=== PATIENT | female | born 1990 | race Caucasian/White ===

== ENCOUNTER 2016-11-11 11:46 | Emergency (ER) | payer OTHER ==
[~2016-11-11] VITALS: Ht 157.5 cm; Wt 65.0 kg
[~2016-11-11 11:46] MED LIST: BCPILLS PO; LEVO-371 PO
[2016-11-11 11:51] VITALS: Ht 157.5 cm; Wt 65.0 kg
[2016-11-11] MEDS ORDERED: ONDANSETRON 4MG OD TAB PO STA (12:08)
[2016-11-11] MEDS ORDERED: MoRPHine SULFATE 10 MG/ML CARP/VIAL IM STA (12:08)
[2016-11-11] MEDS ORDERED: BUPIVACAINE 0.5 % 5 MG/1 ML MPF 30ML VIAL INFIL ONE (12:15)
[2016-11-11] MEDS ORDERED: XYLOCAINE 1%/SOD BICARB 20 ML VIAL INFIL ONE (12:15)
[2016-11-11] MEDS ORDERED: DEXT1CAP PO (12:18)
[2016-11-11] MEDS ORDERED: ULT50 PO (12:18)
[2016-11-11] MEDS ORDERED: CLC/300 PO (12:20)
[2016-11-11] MEDS ORDERED: LORAZEPAM 1 MG TAB PO STA (12:23)
--- NOTE | 2016-11-11 12:27 | EMERGENCY ROOM VISIT NOTE ---
ED Visit Note First contact with patient: 11:59 CHIEF COMPLAINT: Infection of the left thigh HISTORY OF PRESENT ILLNESS: This 26-year-old female patient presents to the emergency department with severe pain in the medial aspect of her left thigh for the last several days. The patient was seen at [facility] 2 days ago. She was diagnosed with an abscess. The abscess was opened and packed. The patient notes severe pain with the procedure and ever since. The packing stayed in until this morning when it fell out. She says that it is still draining purulent fluid. She denies any fever or chills. She does note vomiting every day since she had the procedure done. They put her on clindamycin and Ultram. The Ultram has not been helping with the pain. REVIEW OF SYSTEMS: A review of systems was performed with positives and pertinent negatives listed in the history of present illness. All other systems were reviewed and are negative. ALLERGIES: Hydrocodone MEDICATIONS: Clindamycin, Ultram PMH: Otherwise healthy SOCIAL HISTORY: She does not smoke, occasional alcohol use. PHYSICAL EXAM: Vital Signs: Reviewed Nurse's notes, vital signs stable. GENERAL : 26-year-old female, obviously anxious in appearance. Tearful. SKIN: Approximately 3 cm area of slight erythema and induration noted to the medial thigh. There is a centralized incision. No packing. No noted purulent drainage. EMERGENCY DEPARTMENT COURSE: I examined the patient. She was given morphine 6 g IM and Zofran 4 mg sublingual. She was also given Ativan 1 mg sublingual. She was put on a monitor. Verbal consent was obtained to perform the procedure. After saline and Betadine cleansing and 5 mL of 1% buffered lidocaine and Marcaine anesthesia, the abscess was further incised with a number 11 scalpel blade. The abscess cavity was further probed with a needle flatbed truck driver and the deep pocket expressed. The abscess cavity was then copiously irrigated with sterile saline under pressure. The area was then packed with plain packing. The area was cleaned with sterile saline and dressed with bacitracin and a bulky bandage. The patient tolerated the procedure well. The patient was discharged home in stable condition. DIAGNOSIS: Abscess of the Left thigh DISCHARGE INSTRUCTIONS & TREATMENT: Change the dressing if it becomes soiled or blood-stained and remove the drain in about 36 hours. Cephalexin, 500 mg 4 times a day for 5 days. Please return in 48 hours for packing removal. Please return sooner for any worsening symptoms. Apply warm compresses at least 3 times daily for the next 72 hours to encourage drainage. You may also perform sitz baths and a very clean bathtub. Ibuprofen 600 mg every 6 hours Percocet 1-2 tabs every 4 hours for severe pain. Do not drink alcohol or drive while taking this medication. This may be taken with ibuprofen, but avoid Tylenol. Zofran every 6 hours as needed for nausea. Please See a general surgeon if the abscess does not clear up. A number has been provided. This chart was completed in part utilizing [employer] Speech Voice Recognition software. Attempts were made to minimize the grammatical errors, random word insertions, pronoun errors and incomplete sentences. Any formal questions or concerns about the content, text or information contained within the body of this dictation should be directly addressed to the provider for clarification.
[2016-11-11] MEDS ORDERED: OXYC-57 PO (13:49)
[2016-11-11] MEDS ORDERED: CEPH500C PO (13:49)
[2016-11-11] MEDS ORDERED: ONDA4TAB10 SL (13:49)
[2016-11-11 14:17] VITALS: BP 128/67; PULSE 60; TEMP 36.8; O2SAT 98
== END 2016-11-11 14:19 | disposition home or self-care (01) ==
LOC: C.EDB 11:47 → C.EDD 14:19
DX: L08.9 Local infection of the skin and subcutaneous tissue, unspecified (principal); L02.416 Cutaneous abscess of left lower limb

== ENCOUNTER 2016-11-13 12:58 | Emergency (ER) | payer OTHER ==
[~2016-11-13] VITALS: Ht 157.5 cm; Wt 66.0 kg
[~2016-11-13 12:58] MED LIST changes: +CEPH500C PO; +CLC/300 PO; +DEXT1CAP PO; +ONDA4TAB10 SL; +OXYC-57 PO; +ULT50 PO
[2016-11-13 13:13] VITALS: BP 128/73; PULSE 83; TEMP 37.2; O2SAT 98; Ht 157.5 cm; Wt 66.0 kg
--- NOTE | 2016-11-13 13:42 | EMERGENCY ROOM VISIT NOTE ---
ED Visit Note First contact with patient: 13:25 CHIEF COMPLAINT: Packing removal abscess left thigh Patient is a 26-year-old white female who returns to the emergency department as advised for packing removal from the left inner thigh. She was seen and evaluated here 48 hours ago for the same complaint. She previously had been seen at [facility] 2 days prior to that, where it had been initially I&D'd. She had a repeat I&D performed on Sunday. She is on clindamycin and Keflex. Pain has been improved with the Percocet. She still notes purulent drainage from the area. She rates her pain a 8/10. REVIEW OF SYSTEMS: Review of systems as per HPI. All other systems reviewed were negative. At least 6 systems reviewed. PMH: Electronic medical records are reviewed and summarized as above/below. See Problem List. SOCIAL HISTORY: Patient lives at home with her PHYSICAL EXAM: Vital Signs: Reviewed Nurse's notes. MENTAL STATUS: Patient is an extremely distraught, tearful 26-year-old white female who is awake and alert and crying due to pain. SKIN: Examination of the medial left thigh showed the I&D site, with packing in place. Packing was removed without difficulty. The area is not erythematous, no significant induration present. There is no warmth. No cellulitic changes are noted. There is no lymphangitic streaking. The area is still moderately tender to palpation. EMERGENCY DEPARTMENT COURSE: The patient was seen and examined as above. Her old records are reviewed, specifically her ED visit from 2 days ago. She does not have any pending cultures. Clinically, and based on review of her old records, the area appears to be improving. It does not require further debridement or repacking. She should continue the Keflex and clindamycin as previously prescribed. She had been given contact information for general surgery for follow-up for definitive management once in the infection has healed. She was advised to recheck with her primary care provider this week. Medication reconciliation: I attest that I have personally reviewed the patient' s current medication list. Blood pressure screening : Patient was found to have normal blood pressure on screening and does not require follow-up. Problem List Medical Problems: (1) No known health problems Status: Chronic (2) Sacroiliitis Status: Resolved Current/Historical Medications Scheduled Control Pills ( Control Pills), 1 TAB PO DAILY Cephalexin Monohydrate (Keflex), 500 MG PO QID Clindamycin HCl (Clindamycin HCl), 300 MG PO TID Dextroamphetamine Sulfate (Dextroamphetamine Sulfate), 15 MG PO DAILY Levocetirizine Dihydrochloride (Xyzal), 1 TAB PO DAILY Ondasetron Odt (Zofran Odt), 4 MG SL Q6H Tramadol HCl (Tramadol HCl), 50 MG PO UD Scheduled PRN Oxycodone/Acetaminophen 5MG/325MG (Percocet 5MG/325MG), 1-2 TABS PO Q4H PRN for Pain Allergies Coded Allergies: Hydrocodone (Verified Adverse Reaction, Unknown, GI SYMPTOMS, 11/11/16) Vital Signs Date Time Temp Pulse Resp B/P (MAP) Pulse Ox O2 Delivery O2 Flow Rate FiO2 11/13/16 13:13 37.2 83 18 128/73 98 Room Air Departure Information Impression Primary Impression: Abscess packing removal Referrals Estuardo Darnell, D.O. (PCP) Patient Instructions My [facility] Additional Instructions Finish all antibiotics. Continue local wound care measures as discussed. Dressing changes daily. Warm compresses. Follow-up with your primary care physician this week for recheck.
== END 2016-11-13 14:02 | disposition home or self-care (01) ==
LOC: C.EDB 12:59 → C.EDD 14:02
DX: Z48.00 Encounter for change or removal of nonsurgical wound dressing (principal); L02.416 Cutaneous abscess of left lower limb

== ENCOUNTER 2020-07-27 06:05 | Inpatient (IN) ==
[2020-07-27] MEDS ORDERED: DINOPROSTONE 10 MG INSERT PV ONE (06:45)
[2020-07-27] MEDS ORDERED: OXYTOCIN 30 UNITS/500 ML BAG IV PRN (06:45)
[2020-07-27 07:10] LABS: Hematocrit (blood only) 33.2 % (37-47); Hemoglobin 10.8 g/dL (12.0-16.0); Mean Corpuscular Hemoglobin 25.3 pg (25-34); Mean Corpuscular Hgb Conc 32.5 g/dL (32-36); Mean Corpuscular Volume 77.8 fL (80-100); Mean Platelet Volume 10.2 fL (7.4-10.4); Nucleated RBC # (auto) 0.02 K/uL (0-0); Nucleated RBC % (auto) 0.2 %; Platelet Count 319 K/uL (130-400); RDW Coefficient of Variation 15.8 % (11.5-14.5); RDW Standard Deviation 44.9 fL (36.4-46.3); Red Blood Count 4.27 M/uL (4.2-5.4); White Blood Count 10.51 K/uL (4.8-10.8)
[2020-07-27 07:42] LABS: Albumin Level 2.6 gm/dl (3.4-5.0); BUN Creatinine Ratio 15.8 (10-20); Creatinine Clr Calc Pharmacy 137.9 ml/min; Est GFR (African American) 139.5 ml/min; Est GFR (Non-African American) 120.4 ml/min; Potassium 3.7 mmol/L (3.5-5.1)
[2020-07-27 07:45] LABS: Albumin Globulin Ratio 0.6 (0.9-2); Bilirubin,Total 0.3 mg/dl (0.2-1); Globulin 4.1 gm/dl (2.5-4.0); Total Protein 6.7 gm/dl (6.4-8.2)
--- NOTE | 2020-07-27 08:29 | Progress Note ---
Date of Service July 27, 2020 Assessment & Plan Admission and Anticipated Discharge Date Admission Date: July 27, 2020 Physical Exam Genitourinary: OB Exam Abdomen: + heart tones (Cat 1) and + vertex Manual OB Exam: + cervical dilation fingertip, + cervical effacement 50%, + station high and + amniotic fluid OB Exam Monitor Tracing: + external FHT monitor used, + external uterine monitor used, + category I and + normal FHT variability Will give Cytotec 50 mcg orally for cervical ripening Results & Data ([facility]) Vital Signs (Past 12 Hours) Vital Signs Temp Pulse Resp BP 07/27/20 07:30 18 07/27/20 07:24 91 H 135/86 07/27/20 07:08 88 138/92 07/27/20 07:00 37.0 C 20 07/27/20 06:22 37.2 C 18 07/27/20 06:13 112 H 138/79
[2020-07-27] MEDS ORDERED: miSOPROStoL 50 MCG TAB PO ONE (08:45)
[2020-07-27] MEDS ORDERED: Nursing to Pharmacy Communication SCH (08:45)
[2020-07-27] MEDS: LACTATED RINGER'S 1,000 ML IV PRN ×2 (10:32→14:07)
[2020-07-27 12:01] LABS: Amphetamines+Metham, Urine Neg (Neg); Barbiturates, Urine Neg (Neg); Benzodiazepine, Urine Neg (Neg); Cocaine, Urine Neg (Neg); MDMA (Ecstacy), Urine Neg (Neg); Methadone, Urine Neg (Neg); Opiate, Urine Neg (Neg); Phencyclidine, Urine Neg (Neg)
--- NOTE | 2020-07-27 13:36 | Labor Progress Brief Note ---
Date of Service July 27, 2020 Assessment & Plan Admission and Anticipated Discharge Date Admission Date: July 27, 2020 Physical Exam Genitourinary: Manual OB Exam: + cervical dilation 1 cm and 2 cm, + cervical effacement 70%, + station -2 and + amniotic fluid clear OB Exam Monitor Tracing: + external FHT monitor used, + external uterine monitor used, + category I and + normal FHT variability Results & Data ([facility]) Vital Signs (Past 12 Hours) Vital Signs Temp Pulse Resp BP 07/27/20 13:29 70 133/84 07/27/20 12:08 77 136/80 07/27/20 12:00 20 07/27/20 11:15 37.2 C 07/27/20 10:35 84 137/86 07/27/20 10:30 18 07/27/20 10:00 20 07/27/20 09:26 76 135/85 07/27/20 09:00 18 07/27/20 08:30 18 07/27/20 08:00 18 07/27/20 07:30 18 07/27/20 07:24 91 H 135/86 07/27/20 07:08 88 138/92 07/27/20 07:00 37.0 C 20 07/27/20 06:22 37.2 C 18 07/27/20 06:13 112 H 138/79
[2020-07-27] MEDS: miSOPROStoL 50 MCG TAB PO SCH ×2 (17:16→21:08)
[2020-07-27] MEDS ORDERED: BUTORPHANOL TARTRATE 1 MG/ML VIAL IV PRN (22:53)
--- NOTE | 2020-07-27 22:55 | Labor Progress Brief Note ---
Date of Service July 27, 2020 Assessment & Plan Admission and Anticipated Discharge Date Admission Date: July 27, 2020 Physical Exam Genitourinary: Manual OB Exam: + cervical dilation 2 cm, + cervical effacement 80%, + station -2 and + amniotic fluid clear OB Exam Monitor Tracing: + external FHT monitor used, + external uterine monitor used, + category I and + normal FHT variability cervix still posterior Results & Data ([facility]) Vital Signs (Past 12 Hours) Vital Signs Temp Pulse Resp BP 07/27/20 22:51 67 148/80 H 07/27/20 21:01 36.9 C 18 07/27/20 19:20 36.8 C 18 07/27/20 19:12 73 139/80 07/27/20 18:36 77 122/78 07/27/20 18:30 20 07/27/20 18:00 18 07/27/20 17:30 36.9 C 18 07/27/20 17:18 84 127/76 07/27/20 17:00 18 07/27/20 16:37 78 144/83 H 07/27/20 15:33 68 127/79 07/27/20 15:30 37.3 C 18 07/27/20 14:30 18 07/27/20 14:00 20 07/27/20 13:30 37.0 C 20 07/27/20 13:29 70 133/84 07/27/20 12:08 77 136/80 07/27/20 12:00 20 07/27/20 11:15 37.2 C
[2020-07-28] MEDS ORDERED: ePHEDrine sulfate 50 MG/ML AMP ONE (01:11)
[2020-07-28] MEDS ORDERED: fentaNYL citrate 100 MCG/2 ML VIAL ONE ×2 (01:11→13:00)
[2020-07-28] MEDS ORDERED: SODIUM CHLORIDE 0.9% INJ 10 ML VIAL ONE ×3 (01:11→12:37)
[2020-07-28] MEDS ORDERED: BUPIVACAINE 0.25% 30 ML VIAL ONE ×3 (01:11→12:39)
[2020-07-28] MEDS ORDERED: fentaNYL 2MCG/ML ROPIVACAINE 1.25MG/ML 100 ML BAG EPI ONE (01:12)
--- NOTE | 2020-07-28 01:19 | Anesthesiology Consultation ---
Date of Service July 28, 2020 Assessment & Plan (1) Encounter for pre-operative examination: Chart Review Chart Review: Acceptable Risk for Labor Epidural Consults Requested none ASA ASA2 Proposed Anesthesia Anesthesia Type: Labor Epidural Risk / Benefits Reviewed With: PT / POA / Parent / Guardian, Accepts Plan and Informed Consent Obtained History Height/Weight Height: 5 ft 2 in Weight: 92.079 kg Allergies Allergy/AdvReac Type Severity Reaction Status Date / Time codeine AdvReac SEVERE N/V Verified 07/27/20 06:15 hydrocodone [From Vicodin] AdvReac SEVERE N/V Verified 07/27/20 06:15 oxycodone [From Percocet] AdvReac SEVERE N/V Verified 07/27/20 06:15 SEASONAL ALLERGIES Allergy Mild CONGESTION Uncoded 07/27/20 06:15 Medications Home Medications Medication Instructions Recorded Confirmed Last Taken levocetirizine [Xyzal] 5 mg PO BID 07/27/20 07/27/20 07/27/20 00:00 [id number] 1 tab PO DAILY 07/27/20 07/27/20 07/26/20 08:00 [] Active Medications Generic Name Dose Route Start Last Admin Trade Name Freq PRN Reason Stop Dose Admin Butorphanol Tartrate 1 mg 07/27/20 22:53 07/27/20 23:52 Butorphanol Tartrate 1 Mg/Ml Vial IV 08/26/20 22:52 1 mg Q2HWA PRN Administration Pain Lactated Ringer's 1,000 mls @ 150 mls/hr 07/27/20 06:45 07/27/20 19:35 Lr IV 07/29/20 06:44 0 mls/hr .Q6H40M PRN Infusion L&D Protocol Protocol Misoprostol 50 mcg 07/27/20 12:00 07/27/20 21:08 Misoprostol 50 Mcg Tab PO 08/26/20 11:59 50 mcg Q4 JENNIFER Administration Past Medical History Medical History ADHD Asthma STABLE Endometriosis GERD (gastroesophageal reflux disease) Obesity Osteoarthritis Vaso vagal episode CHRONIC ISSUES X 17 YEARS/TYPICALLY BROUGHT ON BY HEAT/HOT SHOWERS/STRESS; OCCASIONAL (WEEKLY-MONTHLY) Exercise / Class Metabolic Activity II 4-5 Yardwork/Stairs/Walk up hill Past Surgical History Surgical History Abscess S/P EXCISION X 2 (THIGH AND UNDER BREAST) History of bunionectomy LEFT History of colonoscopy Past Anesthesia History No Hx of Anesthesia Complications and No Family Hx of Anesthesia Complications History of PONV No Hx of PONV and No Hx of Motion Sickness Social History Smoking Status: Never smoker Hx Alcohol Use: Yes Alcohol type: beer, wine and hard liquor alcohol intake frequency: a few times a week Hx Substance Use: No substance use type: marijuana Last Used Substance Other:: OCCASIONALLY (NO RECENT USE) Physical Exam Vital Signs Last Vital Signs Temp 98.4 F 07/27/20 23:00 Pulse 67 07/27/20 22:51 Resp 18 07/27/20 23:00 BP 148/80 H 07/27/20 22:51 ENMT Mouth: no dentition abnormality Thyromental Distance: > or= 3.5 Finger Breadths Mallampati Class: II Neck normal visual inspection Respiratory normal respiratory effort Auscultation: lungs clear to auscultation bilaterally Cardiovascular Rate/Rhythm: regular rate and regular rhythm Testing Laboratory Results 07/27/20 06:57 07/27/20 06:57
[2020-07-28] MEDS: LACTATED RINGER'S 1,000 ML IV PRN ×2 (01:31→07:02)
[2020-07-28] MEDS ORDERED: ePHEDrine sulfate 50 MG/ML AMP IV PRN ×2 (01:39→14:17)
[2020-07-28] MEDS ORDERED: diphenhydrAMINE 50 MG/ML VIAL IV PRN ×2 (01:39→14:17)
[2020-07-28] MEDS ORDERED: fentaNYL 2MCG/ML ROPIVACAINE 1.25MG/ML 100 ML BAG EPI PRN ×2 (01:39→07:32)
[2020-07-28] MEDS ORDERED: NALOXONE HCL 0.4 MG/1 ML VIAL/CARP IV PRN ×2 (01:39→14:17)
[2020-07-28] MEDS ORDERED: NALOXONE HCL 1 MG in SODIUM CHLORIDE 0.9% 1000ML 1,000 ML IV PRN ×2 (01:39→14:17)
[2020-07-28] MEDS ORDERED: ONDANSETRON INJ 2 MG/ML 2 ML VIAL IV PRN ×2 (01:39→14:17)
[2020-07-28] MEDS: miSOPROStoL 50 MCG TAB PO SCH (02:03)
--- NOTE | 2020-07-28 06:51 | Labor Progress Brief Note ---
Date of Service July 28, 2020 Assessment & Plan Admission and Anticipated Discharge Date Admission Date: July 27, 2020 Physical Exam Genitourinary: Manual OB Exam: + cervical dilation 9 cm, + cervical effacement 100%, + station + 1 and + amniotic fluid clear OB Exam Monitor Tracing: + external FHT monitor used, + external uterine monitor used, + category I and + normal FHT variability Results & Data ([facility]) Vital Signs (Past 12 Hours) Vital Signs Temp Pulse Resp BP Pulse Ox 07/28/20 06:48 87 98 07/28/20 06:45 86 163/101 H 07/28/20 06:43 104 H 99 07/28/20 06:38 101 H 100 07/28/20 06:33 80 97 07/28/20 06:32 83 91 07/28/20 06:29 100 H 167/92 H 07/28/20 06:28 100 H 99 07/28/20 06:23 111 H 100 07/28/20 06:18 96 H 98 07/28/20 06:16 109 H 181/88 H 07/28/20 06:13 88 97 07/28/20 06:08 95 H 97 07/28/20 06:03 88 97 07/28/20 06:00 90 147/87 H 07/28/20 05:58 102 H 98 07/28/20 05:53 91 H 100 07/28/20 05:48 91 H 100 07/28/20 05:44 86 185/85 H 07/28/20 05:43 95 H 98 07/28/20 05:38 83 96 07/28/20 05:33 89 96 07/28/20 05:28 83 155/79 H 97 07/28/20 05:23 80 99 07/28/20 05:22 18 07/28/20 05:18 81 99 07/28/20 05:14 72 168/84 H 07/28/20 05:13 77 96 07/28/20 05:08 76 97 07/28/20 05:03 83 97 07/28/20 05:00 85 135/76 07/28/20 04:58 85 99 07/28/20 04:53 92 H 95 07/28/20 04:50 70 91 07/28/20 04:48 83 99 07/28/20 04:45 36.9 C 85 20 141/78 H 07/28/20 04:43 96 H 86 L 07/28/20 04:38 102 H 89 L 07/28/20 04:33 99 H 99 07/28/20 04:29 69 133/71 07/28/20 04:28 68 96 07/28/20 04:24 85 90 07/28/20 04:23 67 99 07/28/20 04:18 77 88 L 07/28/20 04:15 77 93 07/28/20 04:14 85 140/92 07/28/20 04:13 88 100 07/28/20 04:08 91 H 98 07/28/20 04:03 81 98 07/28/20 03:58 85 139/97 100 07/28/20 03:53 83 100 07/28/20 03:48 80 98 07/28/20 03:45 84 156/102 H 89 L 07/28/20 03:44 18 07/28/20 03:43 79 100 07/28/20 03:38 85 100 07/28/20 03:36 81 93 07/28/20 03:33 91 H 100 07/28/20 03:28 85 135/84 95 07/28/20 03:23 78 97 07/28/20 03:19 88 94 07/28/20 03:18 83 99 07/28/20 03:14 85 140/85 07/28/20 03:13 87 99 07/28/20 03:08 81 99 07/28/20 03:05 76 93 07/28/20 03:03 83 98 07/28/20 03:00 36.5 C 18 07/28/20 02:58 78 136/80 97 07/28/20 02:53 89 91 07/28/20 02:52 92 H 18 93 07/28/20 02:48 71 96 07/28/20 02:44 77 133/76 07/28/20 02:43 84 97 07/28/20 02:38 79 97 07/28/20 02:33 78 98 07/28/20 02:30 75 133/72 07/28/20 02:28 71 97 07/28/20 02:23 82 98 07/28/20 02:18 81 98 07/28/20 02:14 81 126/72 07/28/20 02:13 84 98 07/28/20 02:08 77 98 07/28/20 02:03 83 98 07/28/20 01:59 88 131/61 07/28/20 01:58 90 99 07/28/20 01:55 18 07/28/20 01:53 81 99 07/28/20 01:50 18 07/28/20 01:48 80 99 07/28/20 01:46 115 H 92 07/28/20 01:45 18 07/28/20 01:43 93 H 99 07/28/20 01:42 93 H 130/73 07/28/20 01:40 94 H 136/73 07/28/20 01:38 102 H 143/82 H 99 07/28/20 01:36 110 H 139/77 07/28/20 01:35 18 07/28/20 01:33 94 H 98 07/28/20 01:28 95 H 99 07/28/20 01:27 107 H 88 L 07/28/20 01:23 110 H 99 07/28/20 01:18 87 98 07/28/20 01:01 36.8 C 18 07/27/20 23:00 36.9 C 18 07/27/20 22:51 67 148/80 H 07/27/20 22:00 36.8 C 07/27/20 21:01 36.9 C 18 07/27/20 19:20 36.8 C 18 07/27/20 19:12 73 139/80
[2020-07-28] MEDS ORDERED: Nursing to Pharmacy Communication SCH (08:00)
[2020-07-28] MEDS ORDERED: OXYTOCIN 30 UNITS/500 ML BAG IV PRN (10:12)
--- NOTE | 2020-07-28 10:12 | Obstetrical Progress Note ---
Date of Service July 28, 2020 Assessment & Plan Admission and Anticipated Discharge Date Admission Date: July 27, 2020 Subjective Patient is seen and examined She is comfortable since epidural was bolused VE: 8-9/ 90%/ 0 to +1 station FHR categ I [address]: has not been monitoring ctxs, was on her side AP: 30 yo at 38.5 wks with PROM at term s/p 2 doses of Cytotec No change in cervix or station for over 3 hours, plan to augment with low dose pitocin Continue to monitor closely Results & Data ([facility]) Vital Signs (Past 12 Hours) Vital Signs Temp Pulse Resp BP Pulse Ox 07/28/20 10:08 89 95 07/28/20 10:03 100 H 100 07/28/20 09:59 71 120/58 L 07/28/20 09:58 77 99 07/28/20 09:53 74 99 07/28/20 09:48 78 98 07/28/20 09:43 85 125/69 98 07/28/20 09:38 78 98 07/28/20 09:33 76 99 07/28/20 09:30 20 07/28/20 09:28 81 122/64 98 07/28/20 09:23 85 98 07/28/20 09:18 92 H 98 07/28/20 09:13 85 125/65 98 07/28/20 09:08 93 H 98 07/28/20 09:03 80 100 07/28/20 09:00 37.1 C 20 07/28/20 08:58 79 142/83 H 99 07/28/20 08:53 86 98 07/28/20 08:48 75 98 07/28/20 08:43 77 129/78 98 07/28/20 08:38 87 97 07/28/20 08:33 86 98 07/28/20 08:30 20 07/28/20 08:28 81 127/74 98 07/28/20 08:23 84 98 07/28/20 08:18 85 98 07/28/20 08:14 81 125/73 07/28/20 08:13 83 97 07/28/20 08:08 82 98 07/28/20 08:03 84 97 07/28/20 08:00 20 07/28/20 07:59 75 124/72 07/28/20 07:58 80 98 07/28/20 07:53 77 97 07/28/20 07:48 78 98 07/28/20 07:44 94 H 121/66 07/28/20 07:43 92 H 98 07/28/20 07:38 84 97 07/28/20 07:33 89 98 07/28/20 07:30 112 H 172/104 H 07/28/20 07:28 92 H 98 07/28/20 07:23 106 H 94 07/28/20 07:19 86 92 07/28/20 07:18 82 95 07/28/20 07:15 89 158/91 H 07/28/20 07:13 83 97 07/28/20 07:09 36.8 C 101 H 20 94 07/28/20 07:08 101 H 95 07/28/20 07:03 105 H 99 07/28/20 06:59 96 H 194/98 H 07/28/20 06:58 93 H 99 07/28/20 06:53 93 H 99 07/28/20 06:48 87 98 07/28/20 06:45 86 163/101 H 07/28/20 06:43 104 H 99 07/28/20 06:38 101 H 100 07/28/20 06:33 80 97 07/28/20 06:32 83 91 07/28/20 06:29 100 H 167/92 H 07/28/20 06:28 100 H 99 07/28/20 06:23 111 H 100 07/28/20 06:18 96 H 98 07/28/20 06:16 109 H 181/88 H 07/28/20 06:13 88 97 07/28/20 06:08 95 H 97 07/28/20 06:03 88 97 07/28/20 06:00 90 147/87 H 07/28/20 05:58 102 H 98 07/28/20 05:53 91 H 100 07/28/20 05:48 91 H 100 07/28/20 05:44 86 185/85 H 07/28/20 05:43 95 H 98 07/28/20 05:38 83 96 07/28/20 05:33 89 96 07/28/20 05:28 83 155/79 H 97 07/28/20 05:23 80 99 07/28/20 05:22 18 06/23/21 05:18 81 99 07/28/20 05:14 72 168/84 H 07/28/20 05:13 77 96 07/28/20 05:08 76 97 07/28/20 05:03 83 97 07/28/20 05:00 85 135/76 07/28/20 04:58 85 99 07/28/20 04:53 92 H 95 07/28/20 04:50 70 91 07/28/20 04:48 83 99 07/28/20 04:45 36.9 C 85 20 141/78 H 07/28/20 04:43 96 H 86 L 07/28/20 04:38 102 H 89 L 07/28/20 04:33 99 H 99 07/28/20 04:29 69 133/71 07/28/20 04:28 68 96 07/28/20 04:24 85 90 07/28/20 04:23 67 99 07/28/20 04:18 77 88 L 07/28/20 04:15 77 93 07/28/20 04:14 85 140/92 07/28/20 04:13 88 100 07/28/20 04:08 91 H 98 07/28/20 04:03 81 98 07/28/20 03:58 85 139/97 100 07/28/20 03:53 83 100 07/28/20 03:48 80 98 07/28/20 03:45 84 156/102 H 89 L 07/28/20 03:44 18 07/28/20 03:43 79 100 07/28/20 03:38 85 100 07/28/20 03:36 81 93 07/28/20 03:33 91 H 100 07/28/20 03:28 85 135/84 95 07/28/20 03:23 78 97 07/28/20 03:19 88 94 07/28/20 03:18 83 99 06 03:14 85 140/85 07/28/20 03:13 87 99 07/28/20 03:08 81 99 07/28/20 03:05 76 93 07/28/20 03:03 83 98 07/28/20 03:00 36.5 C 18 07/28/20 02:58 78 136/80 97 07/28/20 02:53 89 91 07/28/20 02:52 92 H 18 93 07/28/20 02:48 71 96 07/28/20 02:44 77 133/76 07/28/20 02:43 84 97 07/28/20 02:38 79 97 07/28/20 02:33 78 98 07/28/20 02:30 75 133/72 07/28/20 02:28 71 97 07/28/20 02:23 82 98 07/28/20 02:18 81 98 07/28/20 02:14 81 126/72 07/28/20 02:13 84 98 07/28/20 02:08 77 98 07/28/20 02:03 83 98 07/28/20 01:59 88 131/61 07/28/20 01:58 90 99 07/28/20 01:55 18 07/28/20 01:53 81 99 07/28/20 01:50 18 07/28/20 01:48 80 99 07/28/20 01:46 115 H 92 07/28/20 01:45 18 07/28/20 01:43 93 H 99 07/28/20 01:42 93 H 130/73 07/28/20 01:40 94 H 136/73 07/28/20 01:38 102 H 143/82 H 99 07/28/20 01:36 110 H 139/77 07/28/20 01:35 18 07/28/20 01:33 94 H 98 07/28/20 01:28 95 H 99 07/28/20 01:27 107 H 88 L 07/28/20 01:23 110 H 99 07/28/20 01:18 87 98 07/28/20 01:01 36.8 C 18 07/27/20 23:00 36.9 C 18 07/27/20 22:51 67 148/80 H
--- NOTE | 2020-07-28 13:51 | Obstetrical Progress Note ---
Date of Service July 28, 2020 Assessment & Plan Admission and Anticipated Discharge Date Admission Date: July 27, 2020 Subjective Patient is reevaluated. She was very painful and received another bolus of epidural. Comfortable now. Vital signs stable afebrile heart rate category 1 [place], contractions every 1 to 2 minutes Pitocin is at 4 mIU/min Vaginal exam, unchanged, still cervix all around the head, 9 cm dilated, 90% effaced head at 0 to +1 station. Discussed the findings above, no cervical change nor station of head over 6 hours, Discussed options of continuing with Pitocin versus primary section. Discussed is a major surgery with possible risks including but not limited to bleeding, infection, injury to surrounding organs like bowels bladder, ureters, scarring and adhesions. Discussed increased risk of blood clots in legs, lungs and longer recovery. Discussed recovery and exercise after and what to expect. All questions were answered. Patient wants to talk to her and think about it and decide. Results & Data ([facility]) Vital Signs (Past 12 Hours) Vital Signs Temp Pulse Resp BP Pulse Ox 07/28/20 13:44 92 H 135/88 07/28/20 13:43 86 98 07/28/20 13:42 91 H 93 07/28/20 13:38 93 H 97 07/28/20 13:35 103 H 93 07/28/20 13:33 85 99 07/28/20 13:30 20 07/28/20 13:29 69 135/71 07/28/20 13:28 75 96 07/28/20 13:23 83 97 07/28/20 13:18 80 97 07/28/20 13:15 74 127/76 07/28/20 13:13 84 97 07/28/20 13:08 69 96 07/28/20 13:07 82 169/86 H 07/28/20 13:03 80 97 07/28/20 13:01 79 93 07/28/20 13:00 36.6 C 22 07/28/20 12:59 85 147/75 H 07/28/20 12:58 90 95 07/28/20 12:55 111 H 91 07/28/20 12:53 91 H 98 07/28/20 12:48 86 100 07/28/20 12:47 112 H 92 07/28/20 12:45 105 H 174/80 H 07/28/20 12:43 87 98 07/28/20 12:39 86 91 07/28/20 12:38 88 97 07/28/20 12:33 79 97 07/28/20 12:31 81 91 07/28/20 12:29 77 126/79 07/28/20 12:28 85 96 07/28/20 12:23 100 H 99 07/28/20 12:22 83 94 07/28/20 12:18 83 98 07/28/20 12:14 83 148/97 H 07/28/20 12:13 83 100 07/28/20 12:08 83 100 07/28/20 12:05 77 160/90 H 07/28/20 12:03 92 H 100 07/28/20 11:59 81 20 169/86 H 07/28/20 11:58 78 99 07/28/20 11:53 93 H 100 07/28/20 11:48 87 95 07/28/20 11:45 90 92 07/28/20 11:44 85 139/77 07/28/20 11:43 76 97 07/28/20 11:38 75 99 07/28/20 11:35 109 H 93 07/28/20 11:33 87 98 07/28/20 11:30 20 07/28/20 11:28 75 140/84 99 07/28/20 11:23 80 97 07/28/20 11:18 73 99 07/28/20 11:15 69 137/82 07/28/20 11:13 73 99 07/28/20 11:08 79 99 07/28/20 11:03 75 99 07/28/20 11:00 37.0 C 18 07/28/20 10:59 71 129/79 07/28/20 10:58 74 99 07/28/20 10:53 88 98 07/28/20 10:48 85 100 07/28/20 10:43 82 134/75 98 07/28/20 10:38 84 99 07/28/20 10:33 83 99 07/28/20 10:30 20 07/28/20 10:29 74 135/83 07/28/20 10:28 62 100 07/28/20 10:23 80 98 07/28/20 10:18 75 98 07/28/20 10:15 77 136/87 07/28/20 10:13 77 99 07/28/20 10:08 89 95 07/28/20 10:03 100 H 100 07/28/20 10:00 20 07/28/20 09:59 71 120/58 L 07/28/20 09:58 77 99 07/28/20 09:53 74 99 07/28/20 09:48 78 98 07/28/20 09:43 85 125/69 98 07/28/20 09:38 78 98 07/28/20 09:33 76 99 07/28/20 09:30 20 07/28/20 09:28 81 122/64 98 07/28/20 09:23 85 98 07/28/20 09:18 92 H 98 07/28/20 09:13 85 125/65 98 07/28/20 09:08 93 H 98 07/28/20 09:03 80 100 07/28/20 09:00 37.1 C 20 07/28/20 08:58 79 142/83 H 99 07/28/20 08:53 86 98 07/28/20 08:48 75 98 07/28/20 08:43 77 129/78 98 07/28/20 08:38 87 97 07/28/20 08:33 86 98 07/28/20 08:30 20 07/28/20 08:28 81 127/74 98 07/28/20 08:23 84 98 07/28/20 08:18 85 98 07/28/20 08:14 81 125/73 07/28/20 08:13 83 97 07/28/20 08:08 82 98 07/28/20 08:03 84 97 07/28/20 08:00 20 07/28/20 07:59 75 124/72 07/28/20 07:58 80 98 07/28/20 07:53 77 97 07/28/20 07:48 78 98 07/28/20 07:44 94 H 121/66 07/28/20 07:43 92 H 98 07/28/20 07:38 84 97 07/28/20 07:33 89 98 07/28/20 07:30 112 H 172/104 H 07/28/20 07:28 92 H 98 07/28/20 07:23 106 H 94 07/28/20 07:19 86 92 07/28/20 07:18 82 95 07/28/20 07:15 89 158/91 H 07/28/20 07:13 83 97 07/28/20 07:09 36.8 C 101 H 20 94 07/28/20 07:08 101 H 95 07/28/20 07:03 105 H 99 07/28/20 06:59 96 H 194/98 H 07/28/20 06:58 93 H 99 07/28/20 06:53 93 H 99 07/28/20 06:48 87 98 07/28/20 06:45 86 163/101 H 07/28/20 06:43 104 H 99 07/28/20 06:38 101 H 100 07/28/20 06:33 80 97 07/28/20 06:32 83 91 07/28/20 06:29 100 H 167/92 H 07/28/20 06:28 100 H 99 07/28/20 06:23 111 H 100 07/28/20 06:18 96 H 98 07/28/20 06:16 109 H 181/88 H 07/28/20 06:13 88 97 07/28/20 06:08 95 H 97 07/28/20 06:03 88 97 07/28/20 06:00 90 147/87 H 07/28/20 05:58 102 H 98 07/28/20 05:53 91 H 100 07/28/20 05:48 91 H 100 07/28/20 05:44 86 185/85 H 07/28/20 05:43 95 H 98 07/28/20 05:38 83 96 07/28/20 05:33 89 96 07/28/20 05:28 83 155/79 H 97 07/28/20 05:23 80 99 07/28/20 05:22 18 07/28/20 05:18 81 99 07/28/20 05:14 72 168/84 H 07/28/20 05:13 77 96 07/28/20 05:08 76 97 07/28/20 05:03 83 97 07/28/20 05:00 85 135/76 07/28/20 04:58 85 99 07/28/20 04:53 92 H 95 07/28/20 04:50 70 91 07/28/20 04:48 83 99 07/28/20 04:45 36.9 C 85 20 141/78 H 07/28/20 04:43 96 H 86 L 07/28/20 04:38 102 H 89 L 07/28/20 04:33 99 H 99 07/28/20 04:29 69 133/71 07/28/20 04:28 68 96 07/28/20 04:24 85 90 07/28/20 04:23 67 99 07/28/20 04:18 77 88 L 07/28/20 04:15 77 93 07/28/20 04:14 85 140/92 07/28/20 04:13 88 100 07/28/20 04:08 91 H 98 07/28/20 04:03 81 98 07/28/20 03:58 85 139/97 100 07/28/20 03:53 83 100 07/28/20 03:48 80 98 07/28/20 03:45 84 156/102 H 89 L 07/28/20 03:44 18 07/28/20 03:43 79 100 07/28/20 03:38 85 100 07/28/20 03:36 81 93 07/28/20 03:33 91 H 100 07/28/20 03:28 85 135/84 95 07/28/20 03:23 78 97 07/28/20 03:19 88 94 07/28/20 03:18 83 99 07/28/20 03:14 85 140/85 07/28/20 03:13 87 99 07/28/20 03:08 81 99 07/28/20 03:05 76 93 07/28/20 03:03 83 98 07/28/20 03:00 36.5 C 18 07/28/20 02:58 78 136/80 97 07/28/20 02:53 89 91 07/28/20 02:52 92 H 18 93 07/28/20 02:48 71 96 06 02:44 77 133/76 07/28/20 02:43 84 97 07/28/20 02:38 79 97 07/28/20 02:33 78 98 06 02:30 75 133/72 07/28/20 02:28 71 97 07/28/20 02:23 82 98 07/28/20 02:18 81 98 07/28/20 02:14 81 126/72 07/28/20 02:13 84 98 07/28/20 02:08 77 98 07/28/20 02:03 83 98 07/28/20 01:59 88 131/61 07/28/20 01:58 90 99 07/28/20 01:55 18 07/28/20 01:53 81 99 07/28/20 01:50 18
[2020-07-28] MEDS ORDERED: AZITHROMYCIN 500 MG in DEXTROSE 5% 250 ML IV SCH (14:00)
[2020-07-28] MEDS ORDERED: LIDOCAINE 2%/EPINEPHRINE 1:200,000 20 ML SDV ONE ×2 (14:05→15:05)
[2020-07-28] MEDS ORDERED: LACTATED RINGER'S 1,000 ML IV SCH ×3 (14:15→16:15)
[2020-07-28] MEDS ORDERED: CITRIC ACID/SODIUM CITRATE 15 ML UDC PO SCH (14:15)
[2020-07-28] MEDS ORDERED: CITRIC ACID/SODIUM CITRATE 15 ML UDC ONE (14:16)
[2020-07-28] MEDS ORDERED: MoRPHine SULFATE PF 1 MG/ML 10 ML AMP/VIAL EPI ONE (14:17)
[2020-07-28] MEDS ORDERED: LACTATED RINGER'S 500 ML IV PRN (14:17)
[2020-07-28] MEDS ORDERED: KETOROLAC 30 MG/ML VIAL IV PRN (14:17)
[2020-07-28] MEDS ORDERED: NALOXONE HCL 0.08 MG in SYRINGE 1.8 ML IV PRN (14:17)
--- NOTE | 2020-07-28 14:17 | History & Physical Report ---
Date of Service July 28, 2020 Assessment & Plan (1) Failure to progress in labor: 30-year-old G1, P0 at 38 weeks and 5 days of gestation presented with premature rupture of membranes at term progressed to 9 cm dilatation with no progress over 7 hours in labor. Vital signs stable afebrile. heart rate reassuring. Discussed options of either expectant management, continue with Pitocin versus primary section. She decided for and understands risks and signed an informed consent. All questions were answered. (2) Gestational diabetes mellitus (GDM): (3) Premature rupture of membranes: Admission and Anticipated Discharge Date Admission Date: July 27, 2020 History of Present Illness Primary Care Provider: Estuardo Darnell DO Patient is an 30-year-old G1, P0 at 38 weeks and 5 days of gestation who was admitted yesterday morning for premature rupture of membranes at term. She received 2 doses of Cytotec and went into active labor she was found to be 9 cm dilated, 90% effaced and head was +1 station this morning by Dr. Perez it has been over 7 hours with with no cervical change neither station of the head. Failure to progress. After discussion of options she decided to go forward with primary . She understand the risks and signed an informed consent. She had GDMA1, diet controlled Allergies Allergy/AdvReac Type Severity Reaction Status Date / Time codeine AdvReac SEVERE N/V Verified 07/27/20 06:15 hydrocodone [From Vicodin] AdvReac SEVERE N/V Verified 07/27/20 06:15 oxycodone [From Percocet] AdvReac SEVERE N/V Verified 07/27/20 06:15 Home Medications Medication Instructions Recorded Confirmed Type levocetirizine [Xyzal] 5 mg PO BID 07/27/20 07/27/20 History cactvaka-lji-Bm-FA 1 tab PO DAILY 07/27/20 07/27/20 History [] Patient History Medical History ADHD Asthma STABLE Endometriosis GERD (gastroesophageal reflux disease) Obesity Osteoarthritis Vaso vagal episode CHRONIC ISSUES X 17 YEARS/TYPICALLY BROUGHT ON BY HEAT/HOT SHOWERS/STRESS; OCCASIONAL (WEEKLY-MONTHLY) Surgical History Abscess S/P EXCISION X 2 (THIGH AND UNDER BREAST) History of bunionectomy LEFT History of colonoscopy Social History Smoking Status: Never smoker Tobacco Type: Cigarettes and E-cigarettes / Vaping Second Hand Exposure: No; Hx Alcohol Use: Yes Alcohol type: beer, wine and hard liquor Hx Substance Use: No Preferred Language: Malay Communication Ability: Effective Visual Impairment: No Limitations Hearing Ability: Normal American Sign Language Interpreter Required: No Beliefs That Will Affect Care: None marital status: Current Living Situation: Spouse current occupational status: employed 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 Feels Safe at Home: Yes Safety Concerns: Feels Safe At This Time Assistive Devices: None 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 No h/o STD's Review of Systems All systems reviewed & are unremarkable except as noted in HPI & below Physical Exam Constitutional: WD/WN, vitals as above well developed, well nourished and + acute distress (NAD, comfortble with epidural) Cardiovascular: Rate/Rhythm: regular rate and regular rhythm Gastrointestinal (Abdomen): normal bowel sounds, soft, nontender, no hepatosplenomegaly (gravid) Genitourinary: normal external appearance Manual OB Exam: + cervical dilation 9 cm, + cervical effacement 90% and + station 0 OB Exam Monitor Tracing: + external uterine monitor used and + category I Results & Data ([facility]) Vital Signs (Past 12 Hours) Vital Signs Temp Pulse Resp BP Pulse Ox 07/28/20 14:08 91 H 100 07/28/20 14:03 90 98 07/28/20 14:01 121 H 94 07/28/20 13:59 102 H 142/78 H 07/28/20 13:58 96 H 98 07/28/20 13:53 101 H 98 07/28/20 13:48 87 98 07/28/20 13:44 92 H 135/88 07/28/20 13:43 86 98 07/28/20 13:42 91 H 93 07/28/20 13:38 93 H 97 07/28/20 13:35 103 H 93 07/28/20 13:33 85 99 07/28/20 13:30 20 07/28/20 13:29 69 135/71 07/28/20 13:28 75 96 07/28/20 13:23 83 97 07/28/20 13:18 80 97 07/28/20 13:15 74 127/76 07/28/20 13:13 84 97 07/28/20 13:08 69 96 07/28/20 13:07 82 169/86 H 07/28/20 13:03 80 97 07/28/20 13:01 79 93 07/28/20 13:00 36.6 C 22 07/28/20 12:59 85 147/75 H 07/28/20 12:58 90 95 07/28/20 12:55 111 H 91 07/28/20 12:53 91 H 98 07/28/20 12:48 86 100 07/28/20 12:47 112 H 92 07/28/20 12:45 105 H 174/80 H 07/28/20 12:43 87 98 07/28/20 12:39 86 91 07/28/20 12:38 88 97 07/28/20 12:33 79 97 07/28/20 12:31 81 91 07/28/20 12:29 77 126/79 07/28/20 12:28 85 96 07/28/20 12:23 100 H 99 07/28/20 12:22 83 94 07/28/20 12:18 83 98 07/28/20 12:14 83 148/97 H 07/28/20 12:13 83 100 07/28/20 12:08 83 100 07/28/20 12:05 77 160/90 H 07/28/20 12:03 92 H 100 07/28/20 11:59 81 20 169/86 H 07/28/20 11:58 78 99 07/28/20 11:53 93 H 100 07/28/20 11:48 87 95 07/28/20 11:45 90 92 07/28/20 11:44 85 139/77 07/28/20 11:43 76 97 07/28/20 11:38 75 99 07/28/20 11:35 109 H 93 07/28/20 11:33 87 98 07/28/20 11:30 20 07/28/20 11:28 75 140/84 99 07/28/20 11:23 80 97 07/28/20 11:18 73 99 07/28/20 11:15 69 137/82 06/21 11:13 73 99 07/28/20 11:08 79 99 06 11:03 75 99 06 11:00 37.0 C 18 07/28/20 10:59 71 129/79 06 10:58 74 99 07/28/20 10:53 88 98 07/28/20 10:48 85 100 07/28/20 10:43 82 134/75 98 07/28/20 10:38 84 99 07/28/20 10:33 83 99 07/28/20 10:30 20 07/28/20 10:29 74 135/83 07/28/20 10:28 62 100 07/28/20 10:23 80 98 07/28/20 10:18 75 98 07/28/20 10:15 77 136/87 07/28/20 10:13 77 99 07/28/20 10:08 89 95 07/28/20 10:03 100 H 100 07/28/20 10:00 20 07/28/20 09:59 71 120/58 L 07/28/20 09:58 77 99 07/28/20 09:53 74 99 07/28/20 09:48 78 98 07/28/20 09:43 85 125/69 98 07/28/20 09:38 78 98 07/28/20 09:33 76 99 07/28/20 09:30 20 07/28/20 09:28 81 122/64 98 07/28/20 09:23 85 98 07/28/20 09:18 92 H 98 07/28/20 09:13 85 125/65 98 07/28/20 09:08 93 H 98 07/28/20 09:03 80 100 07/28/20 09:00 37.1 C 20 07/28/20 08:58 79 142/83 H 99 07/28/20 08:53 86 98 07/28/20 08:48 75 98 07/28/20 08:43 77 129/78 98 07/28/20 08:38 87 97 07/28/20 08:33 86 98 07/28/20 08:30 20 07/28/20 08:28 81 127/74 98 06 08:23 84 98 07/28/20 08:18 85 98 07/28/20 08:14 81 125/73 07/28/20 08:13 83 97 07/28/20 08:08 82 98 07/28/20 08:03 84 97 07/28/20 08:00 20 07/28/20 07:59 75 124/72 07/28/20 07:58 80 98 07/28/20 07:53 77 97 07/28/20 07:48 78 98 07/28/20 07:44 94 H 121/66 07/28/20 07:43 92 H 98 07/28/20 07:38 84 97 07/28/20 07:33 89 98 07/28/20 07:30 112 H 172/104 H 07/28/20 07:28 92 H 98 07/28/20 07:23 106 H 94 07/28/20 07:19 86 92 07/28/20 07:18 82 95 07/28/20 07:15 89 158/91 H 07/28/20 07:13 83 97 07/28/20 07:09 36.8 C 101 H 20 94 07/28/20 07:08 101 H 95 07/28/20 07:03 105 H 99 07/28/20 06:59 96 H 194/98 H 07/28/20 06:58 93 H 99 07/28/20 06:53 93 H 99 07/28/20 06:48 87 98 07/28/20 06:45 86 163/101 H 07/28/20 06:43 104 H 99 07/28/20 06:38 101 H 100 07/28/20 06:33 80 97 07/28/20 06:32 83 91 07/28/20 06:29 100 H 167/92 H 07/28/20 06:28 100 H 99 07/28/20 06:23 111 H 100 07/28/20 06:18 96 H 98 07/28/20 06:16 109 H 181/88 H 07/28/20 06:13 88 97 07/28/20 06:08 95 H 97 07/28/20 06:03 88 97 07/28/20 06:00 90 147/87 H 07/28/20 05:58 102 H 98 07/28/20 05:53 91 H 100 07/28/20 05:48 91 H 100 07/28/20 05:44 86 185/85 H 06/23/21 05:43 95 H 98 07/28/20 05:38 83 96 07/28/20 05:33 89 96 07/28/20 05:28 83 155/79 H 97 07/28/20 05:23 80 99 07/28/20 05:22 18 07/28/20 05:18 81 99 07/28/20 05:14 72 168/84 H 07/28/20 05:13 77 96 07/28/20 05:08 76 97 07/28/20 05:03 83 97 07/28/20 05:00 85 135/76 07/28/20 04:58 85 99 07/28/20 04:53 92 H 95 07/28/20 04:50 70 91 07/28/20 04:48 83 99 07/28/20 04:45 36.9 C 85 20 141/78 H 07/28/20 04:43 96 H 86 L 07/28/20 04:38 102 H 89 L 07/28/20 04:33 99 H 99 07/28/20 04:29 69 133/71 07/28/20 04:28 68 96 07/28/20 04:24 85 90 07/28/20 04:23 67 99 07/28/20 04:18 77 88 L 07/28/20 04:15 77 93 07/28/20 04:14 85 140/92 07/28/20 04:13 88 100 07/28/20 04:08 91 H 98 07/28/20 04:03 81 98 07/28/20 03:58 85 139/97 100 07/28/20 03:53 83 100 07/28/20 03:48 80 98 07/28/20 03:45 84 156/102 H 89 L 07/28/20 03:44 18 07/28/20 03:43 79 100 07/28/20 03:38 85 100 07/28/20 03:36 81 93 07/28/20 03:33 91 H 100 07/28/20 03:28 85 135/84 95 07/28/20 03:23 78 97 07/28/20 03:19 88 94 07/28/20 03:18 83 99 06 03:14 85 140/85 07/28/20 03:13 87 99 07/28/20 03:08 81 99 07/28/20 03:05 76 93 07/28/20 03:03 83 98 07/28/20 03:00 36.5 C 18 07/28/20 02:58 78 136/80 97 07/28/20 02:53 89 91 07/28/20 02:52 92 H 18 93 07/28/20 02:48 71 96 07/28/20 02:44 77 133/76 07/28/20 02:43 84 97 07/28/20 02:38 79 97 07/28/20 02:33 78 98 07/28/20 02:30 75 133/72 07/28/20 02:28 71 97 07/28/20 02:23 82 98 07/28/20 02:18 81 98 07/28/20 02:14 81 126/72 07/28/20 02:13 84 98 Laboratory Results Lab Results 07/27/20 07/27/20 07/27/20 Range/Units 06:57 06:57 07:55 WBC 10.51 (4.8-10.8) K/uL RBC 4.27 (4.2-5.4) M/uL Hgb 10.8 L (12.0-16.0) g/dL Hct 33.2 L (37-47) % MCV 77.8 L (80-100) fL MCH 25.3 (25-34) pg MCHC 32.5 (32-36) g/dL RDW Std Deviation 44.9 (36.4-46.3) fL RDW Coeff of [place] 15.8 H (11.5-14.5) % Plt Count 319 (130-400) K/uL MPV 10.2 (7.4-10.4) fL Absolute Nucleated RBC 0.02 H (0-0) K/uL Nucleated RBC % (auto) 0.2 % Sodium 139 (136-145) mmol/L Potassium 3.7 (3.5-5.1) mmol/L Chloride 109 H (98-107) mmol/L Carbon Dioxide 21 (21-32) mmol/L Anion Gap 8.0 (3-11) BUN 10 (7-18) mg/dl Creatinine 0.63 (0.6-1.2) mg/dl Est Cr Clr Drug Dosing 137.9 ml/min Est GFR ( Amer) 139.5 ml/min Est GFR (Non-Af Amer) 120.4 ml/min BUN/Creatinine Ratio 15.8 (10-20) Glucose 90 (70-99) mg/dl POC Glucose (70-99) mg/dl Calcium 9.0 (8.5-10.1) mg/dl Total Bilirubin 0.3 (0.2-1) mg/dl AST 13 L (15-37) U/L ALT 11 L (12-78) U/L Alkaline Phosphatase 174 H (45-117) U/L Total Protein 6.7 (6.4-8.2) gm/dl Albumin 2.6 L (3.4-5.0) gm/dl Globulin 4.1 H (2.5-4.0) gm/dl Albumin/Globulin Ratio 0.6 L (0.9-2) Urine Opiates Screen (Neg) Ur Methadone, Qual (Neg) Urine Barbiturates (Neg) Ur Phencyclidine (PCP) (Neg) U Amphetamin/Meth Scrn (Neg) MDMA (Ecstasy) Screen (Neg) U Benzodiazepines Scrn (Neg) Ur Cocaine Metabolite (Neg) U Marijuana (THC) Screen (Neg) COVID[facility]19 [facility] SARS-[facility]-2, RNA, NAAT (NEGATIVE) 07/27/20 07/27/20 07/27/20 Range/Units 07:55 08:10 10:25 WBC (4.8-10.8) K/uL RBC (4.2-5.4) M/uL Hgb (12.0-16.0) g/dL Hct (37-47) % MCV (80-100) fL MCH (25-34) pg MCHC (32-36) g/dL RDW Std Deviation (36.4-46.3) fL RDW Coeff of Kirsten (11.5-14.5) % Plt Count (130-400) K/uL MPV (7.4-10.4) fL Absolute Nucleated RBC (0-0) K/uL Nucleated RBC % (auto) % Sodium (136-145) mmol/L Potassium (3.5-5.1) mmol/L Chloride (98-107) mmol/L Carbon Dioxide (21-32) mmol/L Anion Gap (3-11) BUN (7-18) mg/dl Creatinine (0.6-1.2) mg/dl Est Cr Clr Drug Dosing ml/min Est GFR ( Amer) ml/min Est GFR (Non-Af Amer) ml/min BUN/Creatinine Ratio (10-20) Glucose (70-99) mg/dl POC Glucose 90 (70-99) mg/dl Calcium (8.5-10.1) mg/dl Total Bilirubin (0.2-1) mg/dl AST (15-37) U/L ALT (12-78) U/L Alkaline Phosphatase (45-117) U/L Total Protein (6.4-8.2) gm/dl Albumin (3.4-5.0) gm/dl Globulin (2.5-4.0) gm/dl Albumin/Globulin Ratio (0.9-2) Urine Opiates Screen Neg (Neg) Ur Methadone, Qual Neg (Neg) Urine Barbiturates Neg (Neg) Ur Phencyclidine (PCP) Neg (Neg) U Amphetamin/Meth Scrn Neg (Neg) MDMA (Ecstasy) Screen Neg (Neg) U Benzodiazepines Scrn Neg (Neg) Ur Cocaine Metabolite Neg (Neg) U Marijuana (THC) Screen Pos H (Neg) COVID-19 Eval Order SARS-CoV-2, RNA, NAAT NEGATIVE (NEGATIVE)
[2020-07-28] MEDS ORDERED: NO NARCOTICS OR SEDATIVES SCH (14:30)
[2020-07-28] MEDS ORDERED: SODIUM CHLORIDE 0.9% 1000ML 1,000 ML IV SCH (14:30)
[2020-07-28] MEDS ORDERED: PHENYLEPHRINE 100MCG/ML 5ML SYR ONE (15:01)
[2020-07-28] MEDS ORDERED: ONDANSETRON INJ 2 MG/ML 2 ML VIAL ONE (15:01)
[2020-07-28] MEDS ORDERED: OXYTOCIN 10 UNITS/ML VIAL ONE ×2 (15:02→15:14)
[2020-07-28] MEDS ORDERED: MoRPHine SULFATE PF 1 MG/ML 10 ML AMP/VIAL ONE (15:08)
[2020-07-28] MEDS: ceFAZolin 2000MG 2,000 MG/15 ML SYR IV SCH ×2 (15:31→22:13)
[2020-07-28] MEDS ORDERED: DIPHTHERIA/TETANUS/PERTUSSIS 0.5 ML SYR/VIAL IM ONE (16:01)
[2020-07-28] MEDS ORDERED: SUPERCREAM 0.870% 15 GM JAR EXT PRN (16:01)
[2020-07-28] MEDS ORDERED: SENNA 8.6 MG TAB PO PRN (16:01)
[2020-07-28] MEDS ORDERED: MEASLES, MUMPS & RUBELLA VIRUS VIAL SQ ONE (16:01)
[2020-07-28] MEDS ORDERED: BENZOCAINE 20% AER SPR 82.5 GM CAN EXT PRN (16:01)
[2020-07-28] MEDS ORDERED: MAGNESIUM HYDROXIDE SUSP 30 ML UDC PO PRN (16:01)
[2020-07-28] MEDS ORDERED: ACETAMINOPHEN 1,000 MG/100 ML VIAL IV PRN (16:01)
[2020-07-28] MEDS ORDERED: HYDROCORTISONE ACETATE 25 MG SUPP PR PRN (16:01)
--- NOTE | 2020-07-28 16:01 | Post Operative Brief Note ---
Immediate Post Op Note v1 Date of Surgery July 28, 2020 Pre & Post Diagnosis Operation Date: 07/28/20 14:30 Pre-Op Diagnosis: Failure to progress Failure to descend Failure to dilate Post-Op Diagnosis: Same as pre-op I identified the patient and participated in the time-out.: Yes Procedure Operation Date: 07/28/20 14:30 Actual Procedures p Section in LD; Delivery of live male child at 1512(Bilateral) - Riki Luz MD Surgeon Riki Luz MD Opera Singer Anni Salguero RN Estimated Blood Loss 600 Findings Consistent with Post-Op Diagnosis Drains Alston Catheter (Inserted in L&D; patent and draining dark yellow urine throughout procedure.) Anesthesia Type Labor Epidural Complications none Disposition Accompanied Patient To Recovery: Yes Disposition: L&D
--- NOTE | 2020-07-28 16:42 | Anesthesiology Progress Note ---
Date of Service July 28, 2020 Anesthesia Post Procedure Vital Signs Vital Signs: Temp Pulse Resp BP Pulse Ox 07/28/20 16:38 82 100 07/28/20 16:34 76 20 97/49 L 07/28/20 16:33 82 98 07/28/20 16:29 86 90/55 L 07/28/20 16:28 88 100 07/28/20 16:25 88 77/49 L 07/28/20 16:24 20 07/28/20 16:23 85 96 07/28/20 16:18 89 98 07/28/20 16:14 36.5 C 91 H 20 97/46 L 94 07/28/20 14:43 71 98 07/28/20 14:38 80 99 07/28/20 14:33 86 99 07/28/20 14:30 37.3 C 82 20 133/74 07/28/20 14:28 88 98 07/28/20 14:23 87 98 07/28/20 14:18 95 H 100 07/28/20 14:14 107 H 132/74 93 07/28/20 14:13 96 H 100 07/28/20 14:08 91 H 100 07/28/20 14:03 90 98 07/28/20 14:01 121 H 94 07/28/20 13:59 102 H 142/78 H 07/28/20 13:58 96 H 98 07/28/20 13:53 101 H 98 07/28/20 13:48 87 98 07/28/20 13:44 92 H 135/88 07/28/20 13:43 86 98 07/28/20 13:42 91 H 93 07/28/20 13:38 93 H 97 07/28/20 13:35 103 H 93 07/28/20 13:33 85 99 07/28/20 13:30 20 07/28/20 13:29 69 135/71 07/28/20 13:28 75 96 07/28/20 13:23 83 97 07/28/20 13:18 80 97 07/28/20 13:15 74 127/76 07/28/20 13:13 84 97 07/28/20 13:08 69 96 07/28/20 13:07 82 169/86 H 07/28/20 13:03 80 97 07/28/20 13:01 79 93 07/28/20 13:00 36.6 C 22 07/28/20 12:59 85 147/75 H 07/28/20 12:58 90 95 07/28/20 12:55 111 H 91 07/28/20 12:53 91 H 98 07/28/20 12:48 86 100 07/28/20 12:47 112 H 92 07/28/20 12:45 105 H 174/80 H 07/28/20 12:43 87 98 07/28/20 12:39 86 91 07/28/20 12:38 88 97 07/28/20 12:33 79 97 07/28/20 12:31 81 91 07/28/20 12:29 77 126/79 07/28/20 12:28 85 96 07/28/20 12:23 100 H 99 07/28/20 12:22 83 94 07/28/20 12:18 83 98 07/28/20 12:14 83 148/97 H 07/28/20 12:13 83 100 07/28/20 12:08 83 100 07/28/20 12:05 77 160/90 H 07/28/20 12:03 92 H 100 07/28/20 11:59 81 20 169/86 H 07/28/20 11:58 78 99 07/28/20 11:53 93 H 100 07/28/20 11:48 87 95 07/28/20 11:45 90 92 07/28/20 11:44 85 139/77 07/28/20 11:43 76 97 07/28/20 11:38 75 99 07/28/20 11:35 109 H 93 07/28/20 11:33 87 98 07/28/20 11:30 20 07/28/20 11:28 75 140/84 99 07/28/20 11:23 80 97 07/28/20 11:18 73 99 07/28/20 11:15 69 137/82 07/28/20 11:13 73 99 07/28/20 11:08 79 99 07/28/20 11:03 75 99 07/28/20 11:00 37.0 C 18 07/28/20 10:59 71 129/79 07/28/20 10:58 74 99 07/28/20 10:53 88 98 07/28/20 10:48 85 100 07/28/20 10:43 82 134/75 98 06 10:38 84 99 07/28/20 10:33 83 99 07/28/20 10:30 20 07/28/20 10:29 74 135/83 07/28/20 10:28 62 100 07/28/20 10:23 80 98 06 10:18 75 98 07/28/20 10:15 77 136/87 07/28/20 10:13 77 99 07/28/20 10:08 89 95 07/28/20 10:03 100 H 100 07/28/20 10:00 20 07/28/20 09:59 71 120/58 L 07/28/20 09:58 77 99 07/28/20 09:53 74 99 07/28/20 09:48 78 98 07/28/20 09:43 85 125/69 98 07/28/20 09:38 78 98 07/28/20 09:33 76 99 07/28/20 09:30 20 07/28/20 09:28 81 122/64 98 07/28/20 09:23 85 98 07/28/20 09:18 92 H 98 07/28/20 09:13 85 125/65 98 07/28/20 09:08 93 H 98 07/28/20 09:03 80 100 07/28/20 09:00 37.1 C 20 07/28/20 08:58 79 142/83 H 99 07/28/20 08:53 86 98 07/28/20 08:48 75 98 07/28/20 08:43 77 129/78 98 07/28/20 08:38 87 97 07/28/20 08:33 86 98 07/28/20 08:30 20 07/28/20 08:28 81 127/74 98 07/28/20 08:23 84 98 07/28/20 08:18 85 98 06 08:14 81 125/73 07/28/20 08:13 83 97 06 08:08 82 98 07/28/20 08:03 84 97 07/28/20 08:00 20 07/28/20 07:59 75 124/72 06 07:58 80 98 07/28/20 07:53 77 97 07/28/20 07:48 78 98 06/23/21 07:44 94 H 121/66 07/28/20 07:43 92 H 98 07/28/20 07:38 84 97 07/28/20 07:33 89 98 07/28/20 07:30 112 H 172/104 H 07/28/20 07:28 92 H 98 07/28/20 07:23 106 H 94 07/28/20 07:19 86 92 07/28/20 07:18 82 95 07/28/20 07:15 89 158/91 H 07/28/20 07:13 83 97 07/28/20 07:09 36.8 C 101 H 20 94 07/28/20 07:08 101 H 95 07/28/20 07:03 105 H 99 07/28/20 06:59 96 H 194/98 H 07/28/20 06:58 93 H 99 07/28/20 06:53 93 H 99 07/28/20 06:48 87 98 07/28/20 06:45 86 163/101 H 07/28/20 06:43 104 H 99 07/28/20 06:38 101 H 100 07/28/20 06:33 80 97 07/28/20 06:32 83 91 07/28/20 06:29 100 H 167/92 H 07/28/20 06:28 100 H 99 07/28/20 06:23 111 H 100 07/28/20 06:18 96 H 98 07/28/20 06:16 109 H 181/88 H 07/28/20 06:13 88 97 07/28/20 06:08 95 H 97 07/28/20 06:03 88 97 07/28/20 06:00 90 147/87 H 07/28/20 05:58 102 H 98 07/28/20 05:53 91 H 100 07/28/20 05:48 91 H 100 07/28/20 05:44 86 185/85 H 07/28/20 05:43 95 H 98 07/28/20 05:38 83 96 07/28/20 05:33 89 96 07/28/20 05:28 83 155/79 H 97 07/28/20 05:23 80 99 07/28/20 05:22 18 07/28/20 05:18 81 99 07/28/20 05:14 72 168/84 H 06/23/21 05:13 77 96 07/28/20 05:08 76 97 07/28/20 05:03 83 97 07/28/20 05:00 85 135/76 07/28/20 04:58 85 99 07/28/20 04:53 92 H 95 07/28/20 04:50 70 91 07/28/20 04:48 83 99 07/28/20 04:45 36.9 C 85 20 141/78 H 07/28/20 04:43 96 H 86 L 07/28/20 04:38 102 H 89 L 07/28/20 04:33 99 H 99 07/28/20 04:29 69 133/71 07/28/20 04:28 68 96 07/28/20 04:24 85 90 07/28/20 04:23 67 99 07/28/20 04:18 77 88 L 07/28/20 04:15 77 93 07/28/20 04:14 85 140/92 07/28/20 04:13 88 100 07/28/20 04:08 91 H 98 07/28/20 04:03 81 98 07/28/20 03:58 85 139/97 100 07/28/20 03:53 83 100 07/28/20 03:48 80 98 07/28/20 03:45 84 156/102 H 89 L 07/28/20 03:44 18 07/28/20 03:43 79 100 07/28/20 03:38 85 100 07/28/20 03:36 81 93 07/28/20 03:33 91 H 100 07/28/20 03:28 85 135/84 95 07/28/20 03:23 78 97 07/28/20 03:19 88 94 07/28/20 03:18 83 99 07/28/20 03:14 85 140/85 07/28/20 03:13 87 99 07/28/20 03:08 81 99 07/28/20 03:05 76 93 07/28/20 03:03 83 98 07/28/20 03:00 36.5 C 18 07/28/20 02:58 78 136/80 97 07/28/20 02:53 89 91 07/28/20 02:52 92 H 18 93 07/28/20 02:48 71 96 07/28/20 02:44 77 133/76 07/28/20 02:43 84 97 07/28/20 02:38 79 97 07/28/20 02:33 78 98 07/28/20 02:30 75 133/72 07/28/20 02:28 71 97 07/28/20 02:23 82 98 07/28/20 02:18 81 98 07/28/20 02:14 81 126/72 07/28/20 02:13 84 98 07/28/20 02:08 77 98 07/28/20 02:03 83 98 07/28/20 01:59 88 131/61 07/28/20 01:58 90 99 07/28/20 01:55 18 07/28/20 01:53 81 99 07/28/20 01:50 18 07/28/20 01:48 80 99 07/28/20 01:46 115 H 92 07/28/20 01:45 18 07/28/20 01:43 93 H 99 07/28/20 01:42 93 H 130/73 07/28/20 01:40 94 H 136/73 07/28/20 01:38 102 H 143/82 H 99 07/28/20 01:36 110 H 139/77 07/28/20 01:35 18 07/28/20 01:33 94 H 98 07/28/20 01:28 95 H 99 07/28/20 01:27 107 H 88 L 07/28/20 01:23 110 H 99 07/28/20 01:18 87 98 07/28/20 01:01 36.8 C 18 07/27/20 23:00 36.9 C 18 07/27/20 22:51 67 148/80 H 07/27/20 22:00 36.8 C 07/27/20 21:01 36.9 C 18 07/27/20 19:20 36.8 C 18 07/27/20 19:12 73 139/80 07/27/20 18:36 77 122/78 07/27/20 18:30 20 07/27/20 18:00 18 07/27/20 17:30 36.9 C 18 07/27/20 17:18 84 127/76 07/27/20 17:00 18 Pain Intensity Abdomen: Pain Intensity: 0 Transfer of Care Handoff Completed per policy Notes Mental Status: alert / awake / arousable Patient Amnestic to Procedure: Yes Nausea / Vomiting: adequately controlled Pain: adequately controlled Airway Patency, RR, SpO2: stable & adequate BP & HR: stable & adequate Hydration State: stable & adequate Neuraxial Anesthesia: was administered and sensory block is resolving Anesthetic Complications: no major complications apparent and Pt Satisfied with anesthetic care
--- NOTE | 2020-07-28 16:53 | Operative Report (OR) ---
DATE OF PROCEDURE: 07/28/2020 PREOPERATIVE DIAGNOSES: The patient is a 30-year-old 1, para 0, at 38 weeks and 5 days of gestation, who presented to labor and delivery on 07/27/2020 with premature rupture of membranes at term, failure to progress in active stage of labor, arrest of dilatation and descent. POSTOPERATIVE DIAGNOSES: The patient is a 30-year-old 1, para 0, at 38 weeks and 5 days of gestation, who presented to labor and delivery on 07/27/2020 with premature rupture of membranes at term, failure to progress in active stage of labor, arrest of dilatation and descent. PROCEDURE: Primary low transverse with Pfannenstiel skin incision. SURGEON: Riki Luz MD. TECHNICAL MGR: Anni Bond RN, OR nurse. ESTIMATED BLOOD LOSS: 600 mL. DRAINS: Alston catheter drained 75 mL of dark urine. ANESTHESIA: Labor epidural. ANESTHESIOLOGIST: Dr. Bailey. COMPLICATIONS: None. FINDINGS: Baby was a viable male delivered at 1512 p.m. Apgars were 8 and 9. Weight was 2955 grams. Maternal findings; normal uterus, fallopian tubes, and ovaries. DESCRIPTION OF PROCEDURE: The patient was taken to the operating room where epidural anesthesia was found to be adequate. She was placed in dorsal supine position with a leftward tilt. She was prepared and draped in the usual sterile fashion. A Pfannenstiel skin incision was made and carried through to the underlying layer of fascia with the Bovie. The fascia was incised in the midline and the incision was extended laterally with the help of Deleon scissors. Upper aspect of the fascial incision was then grasped with two Ivania clamps, elevated, and underlying rectus muscles were dissected off sharply with Deleon scissors. Lower aspect of the fascial incision was then grasped with two Ivania clamps, elevated and underlying rectus muscles were dissected off sharply with Deleon scissors. Rectus muscles were in the midline incision. The peritoneum was entered bluntly with fingers. The peritoneal incision was extended superiorly and inferiorly with good visualization of the bladder. Bladder blade was inserted and an Flaco abdominal wall retractor was placed in the abdomen and abdominal wall was retracted. The vesicouterine peritoneum was identified, grasped with pickups, entered sharply with Metzenbaum scissors. A bladder flap was created digitally and bladder blade was reinserted. Lower uterine segment was thin. It was incised with a scalpel. Incision was extended laterally with the help of fingers. Head was brought to the incision and delivered without difficulty. Shoulders were delivered with minimal traction. Mouth and nose were suctioned. Baby was vigorously crying and moving. Cord was clamped x2 and cut at 1 minute delay. Baby was handed off to the waiting instructor private, Dr. Lynn. Cord blood was obtained. Placenta was delivered manually as intact and complete. Uterus was exteriorized and cleared of all clots and debris. Uterine incision was repaired with 0 Vicryl in a running locked fashion. A second imbricating layer was placed with 0 Vicryl in a running locked fashion. Excellent hemostasis was achieved. Cul-de-sac was irrigated with warm normal saline and suctioned. There was a superficial defect on the posterior serosa left lower side, which was just superior to the left corner of the uterine incision, it was minimally oozing. It was repaired with 2-0 Vicryl in a running fashion. Excellent hemostasis was achieved and the uterus was returned to the patient's abdomen. Pelvis was irrigated with warm normal saline and suctioned, and the incision was checked to be hemostatic again. Parietal peritoneum was reapproximated with 3-0 Vicryl and the rectus muscles were reapproximated with the same suture in a running continuous fashion. Excellent hemostasis was achieved, and the rectus fascia was reapproximated with 0 Vicryl in a running fashion and this layer was supported with #1 Vicryl sutures and then subcuticular fat tissue was reapproximated with 3-0 Vicryl in a running fashion. The skin was closed with 4-0 Monocryl in a subcuticular fashion. The patient tolerated the procedure well. Sponge, lap, needle count was correct x3. No complications happened. I was present during the whole procedure and at the end of the procedure, all counts were correct x3. She was taken to recovery room in stable condition. The patient was given 2 g of cefazolin before surgery and 500 mg of azithromycin. Job ID: [id number] [facility]
[2020-07-28] MEDS: OXYTOCIN 20 UNITS in LACTATED RINGER'S 1,000 ML IV SCH (18:29)
[2020-07-28] MEDS: SIMETHICONE 80 MG CHEW PO SCH ×2 (18:31→19:45)
[2020-07-28] MEDS: DOCUSATE SODIUM 100 MG CAP PO SCH (19:45)
[2020-07-29] MEDS: OXYTOCIN 20 UNITS in LACTATED RINGER'S 1,000 ML IV SCH (02:50)
[2020-07-29] MEDS: ceFAZolin 2000MG 2,000 MG/15 ML SYR IV SCH ×3 (06:24→22:16)
[2020-07-29] MEDS ORDERED: DC INTRASPINAL MORPHINE SCH (08:17)
[2020-07-29 08:18] LABS: Basophils # (auto) 0.02 K/uL (0-0.2); Basophils % (auto) 0.1 %; Hematocrit (blood only) 28.8 % (37-47); Hemoglobin 9.2 g/dL (12.0-16.0); Immature Granulocytes # (auto) 0.07 K/uL (0.00-0.02); Immature Granulocytes % (auto) 0.4 %; Lymphocytes # (auto) 1.78 K/uL (1.2-3.4); Lymphocytes % (auto) 9.1 %; Mean Corpuscular Hemoglobin 24.7 pg (25-34); Mean Corpuscular Hgb Conc 31.9 g/dL (32-36); Mean Corpuscular Volume 77.4 fL (80-100); Mean Platelet Volume 10.5 fL (7.4-10.4); Monocytes # (auto) 1.17 K/uL (0.11-0.59); Neutrophils # (auto) 16.44 K/uL (1.4-6.5); Neutrophils % (auto) 84.4 %; Platelet Count 253 K/uL (130-400); RDW Coefficient of Variation 16.1 % (11.5-14.5); RDW Standard Deviation 45.8 fL (36.4-46.3); Red Blood Count 3.72 M/uL (4.2-5.4); White Blood Count 19.48 K/uL (4.8-10.8)
[2020-07-29] MEDS ORDERED: diphenhydrAMINE 50 MG/ML VIAL IV PRN (08:18)
[2020-07-29] MEDS ORDERED: PROMETHAZINE HCL 25 MG in SODIUM CHLORIDE 0.9% 50 ML IV PRN (08:18)
[2020-07-29] MEDS ORDERED: MEPERIDINE HCL 50 MG/ML CARP IV PRN (08:18)
[2020-07-29] MEDS ORDERED: diphenhydrAMINE Capsule 25 MG CAP PO PRN (08:18)
[2020-07-29] MEDS ORDERED: ONDANSETRON INJ 2 MG/ML 2 ML VIAL IV PRN (08:18)
[2020-07-29] MEDS ORDERED: KETOROLAC 30 MG/ML VIAL IV PRN (08:18)
[2020-07-29 08:41] LABS: Marijuana Quant, GCMS Urine 8 ng/mL (<5)
[2020-07-29] MEDS: SIMETHICONE 80 MG CHEW PO SCH ×4 (08:49→20:34)
[2020-07-29] MEDS: PRENATAL VITAMIN 1 TAB PO SCH (08:49)
[2020-07-29] MEDS: FERROUS SULFATE 325 MG TAB PO SCH (08:49)
[2020-07-29] MEDS: DOCUSATE SODIUM 100 MG CAP PO SCH ×2 (08:49→20:34)
--- NOTE | 2020-07-29 10:57 | Obstetrical Progress Note ---
Date of Service July 29, 2020 Assessment & Plan Admission and Anticipated Discharge Date Admission Date: July 27, 2020 Subjective Patient is seen and examined. She feels well, no complaints. Pain is under control. Ambulating without dizziness Tolerating clear diet with out N&V Flatus neg BM neg Bleeding is minimal No fever/ chills/ CP/ SOB/ N&V/ Leg pain Breast feeding without problems Vital Signs Temp Pulse Resp BP Pulse Ox 07/29/20 08:25 36.9 C 65 18 111/74 100 07/29/20 07:30 18 99 07/29/20 06:35 16 100 07/29/20 05:00 16 95 07/29/20 04:28 16 95 07/29/20 03:50 36.9 C 68 16 111/68 97 07/29/20 03:00 16 96 07/29/20 02:00 16 95 07/29/20 01:00 16 98 07/29/20 00:00 17 93 07/28/20 23:00 16 98 Intake & Output 07/28/20 07/29/20 07/29/20 22:59 06:59 14:59 Intake Total 3500 / 6516.066 3002 / 6516.066 916.667 / 916.667 Output Total 600 / 3000 2250 / 3000 400 / 400 Balance 2900 / 3516.066 752 / 3516.066 516.667 / 516.667 Intake: IV 1000 / 2015.066 1002 / 2016.066 916.667 / 916.667 Lactated Ringer's 1,000 ml @ 1000 / 1000 150 mls/hr IV .Q6H40M PRN Rx#: [id number] Oxytocin 20 units In Lactated 1002 / 1002 916.667 / 916.667 Ringer's 1,000 ml @ 125 mls/hr IV .Q8H1M JENNIFER Rx#:[id number] IV Perioperative 2500 / 2500 Oral 2000 / 1999 Output: Urine Amount (Catheter) 600 / 3000 2250 / 3000 400 / 400 Alston/Indwelling 600 / 2850 2250 / 2850 400 / 400 Lab Results 07/27/20 07/27/20 07/27/20 Range/Units 06:57 06:57 06:57 WBC 10.51 (4.8-10.8) K/uL RBC 4.27 (4.2-5.4) M/uL Hgb 10.8 L (12.0-16.0) g/dL Hct 33.2 L (37-47) % MCV 77.8 L (80-100) fL MCH 25.3 (25-34) pg MCHC 32.5 (32-36) g/dL RDW Std Deviation 44.9 (36.4-46.3) fL RDW Coeff of Kirsten 15.8 H (11.5-14.5) % Plt Count 319 (130-400) K/uL MPV 10.2 (7.4-10.4) fL Immature Gran % (Auto) % Neut % (Auto) % Lymph % (Auto) % [place] % (Auto) % Eos % (Auto) % Baso % (Auto) % Neut # (Auto) (1.4-6.5) K/uL Lymph # (Auto) (1.2-3.4) K/uL [place] # (Auto) (0.11-0.59) K/uL Eos # (Auto) (0-0.5) K/uL Baso # (Auto) (0-0.2) K/uL Immature Gran # (Auto) (0.00-0.02) K/uL Absolute Nucleated RBC 0.02 H (0-0) K/uL Nucleated RBC % (auto) 0.2 % Sodium 139 (136-145) mmol/L Potassium 3.7 (3.5-5.1) mmol/L Chloride 109 H (98-107) mmol/L Carbon Dioxide 21 (21-32) mmol/L Anion Gap 8.0 (3-11) BUN 10 (7-18) mg/dl Creatinine 0.63 (0.6-1.2) mg/dl Est Cr Clr Drug Dosing 137.9 ml/min Est GFR ( Amer) 139.5 ml/min Est GFR (Non-Af Amer) 120.4 ml/min BUN/Creatinine Ratio 15.8 (10-20) Glucose 90 (70-99) mg/dl POC Glucose (70-99) mg/dl Calcium 9.0 (8.5-10.1) mg/dl Total Bilirubin 0.3 (0.2-1) mg/dl AST 13 L (15-37) U/L ALT 11 L (12-78) U/L Alkaline Phosphatase 174 H (45-117) U/L Total Protein 6.7 (6.4-8.2) gm/dl Albumin 2.6 L (3.4-5.0) gm/dl Globulin 4.1 H (2.5-4.0) gm/dl Albumin/Globulin Ratio 0.6 L (0.9-2) Urine Opiates Screen (Neg) Ur Methadone, Qual (Neg) Urine Barbiturates (Neg) Ur Phencyclidine (PCP) (Neg) U Amphetamin/Meth Scrn (Neg) MDMA (Ecstasy) Screen (Neg) U Benzodiazepines Scrn (Neg) Ur Cocaine Metabolite (Neg) U Marijuana (THC) Screen (Neg) U Marijuana THC Carboxy (<5) ng/mL Drug Screen Comment COVID-19 Eval Order SARS-CoV-2, RNA, NAAT (NEGATIVE) Blood Type A Positive Antibody Screen NEGATIVE 07/27/20 07/27/20 07/27/20 Range/Units 07:55 07:55 08:10 WBC (4.8-10.8) K/uL RBC (4.2-5.4) M/uL Hgb (12.0-16.0) g/dL Hct (37-47) % MCV (80-100) fL MCH (25-34) pg MCHC (32-36) g/dL RDW Std Deviation (36.4-46.3) fL RDW Coeff of Kirsten (11.5-14.5) % Plt Count (130-400) K/uL MPV (7.4-10.4) fL Immature Gran % (Auto) % Neut % (Auto) % Lymph % (Auto) % [place] % (Auto) % Eos % (Auto) % Baso % (Auto) % Neut # (Auto) (1.4-6.5) K/uL Lymph # (Auto) (1.2-3.4) K/uL [place] # (Auto) (0.11-0.59) K/uL Eos # (Auto) (0-0.5) K/uL Baso # (Auto) (0-0.2) K/uL Immature Gran # (Auto) (0.00-0.02) K/uL Absolute Nucleated RBC (0-0) K/uL Nucleated RBC % (auto) % Sodium (136-145) mmol/L Potassium (3.5-5.1) mmol/L Chloride (98-107) mmol/L Carbon Dioxide (21-32) mmol/L Anion Gap (3-11) BUN (7-18) mg/dl Creatinine (0.6-1.2) mg/dl Est Cr Clr Drug Dosing ml/min Est GFR ( Amer) ml/min Est GFR (Non-Af Amer) ml/min BUN/Creatinine Ratio (10-20) Glucose (70-99) mg/dl POC Glucose (70-99) mg/dl Calcium (8.5-10.1) mg/dl Total Bilirubin (0.2-1) mg/dl AST (15-37) U/L ALT (12-78) U/L Alkaline Phosphatase (45-117) U/L Total Protein (6.4-8.2) gm/dl Albumin (3.4-5.0) gm/dl Globulin (2.5-4.0) gm/dl Albumin/Globulin Ratio (0.9-2) Urine Opiates Screen Neg (Neg) Ur Methadone, Qual Neg (Neg) Urine Barbiturates Neg (Neg) Ur Phencyclidine (PCP) Neg (Neg) U Amphetamin/Meth Scrn Neg (Neg) MDMA (Ecstasy) Screen Neg (Neg) U Benzodiazepines Scrn Neg (Neg) Ur Cocaine Metabolite Neg (Neg) U Marijuana (THC) Screen Pos H (Neg) U Marijuana THC Carboxy (<5) ng/mL Drug Screen Comment COVID-19 Eval Order Covid19 [facility]Now [facility] SARS-CoV-2, RNA, NAAT NEGATIVE (NEGATIVE) Blood Type Antibody Screen 07/27/20 07/27/20 07/29/20 Range/Units 08:10 10:25 07:24 WBC 19.48 H (4.8-10.8) K/uL RBC 3.72 L (4.2-5.4) M/uL Hgb 9.2 L (12.0-16.0) g/dL Hct 28.8 L (37-47) % MCV 77.4 L (80-100) fL MCH 24.7 L (25-34) pg MCHC 31.9 L (32-36) g/dL RDW Std Deviation 45.8 (36.4-46.3) fL RDW Coeff of Kirsten 16.1 H (11.5-14.5) % Plt Count 253 (130-400) K/uL MPV 10.5 H (7.4-10.4) fL Immature Gran % (Auto) 0.4 % Neut % (Auto) 84.4 % Lymph % (Auto) 9.1 % [place] % (Auto) 6.0 % Eos % (Auto) 0.0 % Baso % (Auto) 0.1 % Neut # (Auto) 16.44 H (1.4-6.5) K/uL Lymph # (Auto) 1.78 (1.2-3.4) K/uL [place] # (Auto) 1.17 H (0.11-0.59) K/uL Eos # (Auto) 0.00 (0-0.5) K/uL Baso # (Auto) 0.02 (0-0.2) K/uL Immature Gran # (Auto) 0.07 H (0.00-0.02) K/uL Absolute Nucleated RBC (0-0) K/uL Nucleated RBC % (auto) % Sodium (136-145) mmol/L Potassium (3.5-5.1) mmol/L Chloride (98-107) mmol/L Carbon Dioxide (21-32) mmol/L Anion Gap (3-11) BUN (7-18) mg/dl Creatinine (0.6-1.2) mg/dl Est Cr Clr Drug Dosing ml/min Est GFR ( Amer) ml/min Est GFR (Non-Af Amer) ml/min BUN/Creatinine Ratio (10-20) Glucose (70-99) mg/dl POC Glucose 90 (70-99) mg/dl Calcium (8.5-10.1) mg/dl Total Bilirubin (0.2-1) mg/dl AST (15-37) U/L ALT (12-78) U/L Alkaline Phosphatase (45-117) U/L Total Protein (6.4-8.2) gm/dl Albumin (3.4-5.0) gm/dl Globulin (2.5-4.0) gm/dl Albumin/Globulin Ratio (0.9-2) Urine Opiates Screen (Neg) Ur Methadone, Qual (Neg) Urine Barbiturates (Neg) Ur Phencyclidine (PCP) (Neg) U Amphetamin/Meth Scrn (Neg) MDMA (Ecstasy) Screen (Neg) U Benzodiazepines Scrn (Neg) Ur Cocaine Metabolite (Neg) U Marijuana (THC) Screen (Neg) U Marijuana THC Carboxy 8 H (<5) ng/mL Drug Screen Comment SEE NOTE COVID-19 Eval Order SARS-CoV-2, RNA, NAAT (NEGATIVE) Blood Type Antibody Screen PE: General: Alert, orientedx3, NAD CVS: S1S2 RRR Lungs; CTAB Abd: soft, NT, ND, BS+, fundus firm, below Umbilicus Incision: Clean, dry, intact Perineum intact, Lochia rubra minimal Ext; NT, no edema AP: 30 yo s/p C Section, pod# 1 VSS Afebrile doing well Continue routine postop care Encourage ambulation, PO intake All questions were answered Desires D/C home tomorrow Results & Data ([facility]) Vital Signs (Past 12 Hours) Vital Signs Temp Pulse Resp BP Pulse Ox 07/29/20 08:25 36.9 C 65 18 111/74 100 07/29/20 07:30 18 99 07/29/20 06:35 16 100 07/29/20 05:00 16 95 07/29/20 04:28 16 95 07/29/20 03:50 36.9 C 68 16 111/68 97 07/29/20 03:00 16 96 07/29/20 02:00 16 95 07/29/20 01:00 16 98 07/29/20 00:00 17 93 07/28/20 23:00 16 98
[2020-07-29] MEDS: IBUPROFEN 600 MG TAB PO PRN ×2 (13:22→20:34)
[2020-07-29] MEDS ORDERED: ACETAMINOPHEN 325 MG TAB PO PRN (18:28)
[2020-07-29] MEDS ORDERED: bisacodyL 5 MG TABEC PO SCH (20:00)
[2020-07-29] MEDS: ONDANSETRON 4 MG OD TAB PO PRN (20:34)
[2020-07-29] MEDS: oxyCODONE/ACETAMINOPHEN 5mg/325mg TAB PO PRN (21:09)
[2020-07-30] MEDS: ceFAZolin 2000MG 2,000 MG/15 ML SYR IV SCH (07:09)
[2020-07-30 07:11] LABS: Basophils # (auto) 0.02 K/uL (0-0.2); Basophils % (auto) 0.2 %; Eosinophils # (auto) 0.15 K/uL (0-0.5); Eosinophils % (auto) 1.3 %; Hematocrit (blood only) 29.7 % (37-47); Hemoglobin 9.4 g/dL (12.0-16.0); Immature Granulocytes # (auto) 0.04 K/uL (0.00-0.02); Immature Granulocytes % (auto) 0.3 %; Lymphocytes # (auto) 2.52 K/uL (1.2-3.4); Lymphocytes % (auto) 21.9 %; Mean Corpuscular Hemoglobin 24.6 pg (25-34); Mean Corpuscular Hgb Conc 31.6 g/dL (32-36); Mean Corpuscular Volume 77.7 fL (80-100); Mean Platelet Volume 9.9 fL (7.4-10.4); Monocytes % (auto) 5.2 %; Neutrophils # (auto) 8.17 K/uL (1.4-6.5); Neutrophils % (auto) 71.1 %; Platelet Count 224 K/uL (130-400); RDW Coefficient of Variation 16.5 % (11.5-14.5); Red Blood Count 3.82 M/uL (4.2-5.4)
[2020-07-30] MEDS: ONDANSETRON 4 MG OD TAB PO PRN ×2 (07:11→11:34)
[2020-07-30] MEDS: SIMETHICONE 80 MG CHEW PO SCH ×2 (07:45→12:01)
[2020-07-30] MEDS: DOCUSATE SODIUM 100 MG CAP PO SCH (07:45)
[2020-07-30] MEDS: FERROUS SULFATE 325 MG TAB PO SCH (07:45)
[2020-07-30] MEDS: PRENATAL VITAMIN 1 TAB PO SCH (07:45)
[2020-07-30] MEDS: IBUPROFEN 600 MG TAB PO PRN ×2 (07:46→12:01)
[2020-07-30] MEDS: oxyCODONE/ACETAMINOPHEN 5mg/325mg TAB PO PRN ×2 (07:46→12:00)
--- NOTE | 2020-07-30 08:17 | Obstetrical Progress Note ---
Date of Service July 30, 2020 Subjective Ambulation: ambulating normally Voiding: no voiding problems Passing Gas:: Yes Diet Tolerance:: regular diet Lochia:: Small Feeding Type:: breast feeding abdomen soft and non-tender incision c/d/i Physical Exam Constitutional WD/WN, vitals as above well developed and comfortable abdomen soft fundus firm lopez/c today follow up next week for incision check Results & Data ([facility]) Vital Signs (Past 12 Hours) Vital Signs Temp Pulse Resp BP Pulse Ox 07/29/20 22:59 36.8 C 77 16 107/73 96
[2020-07-30] MEDS ORDERED: bisacodyL 10 MG SUPP PR PRN (16:01)
--- NOTE | 2020-08-04 04:41 | Discharge Summary (DS) ---
DATE OF DISCHARGE: 07/30/2020. DETAILS OF ADMISSION: The patient is a 30-year-old, G1, P0 at 38 weeks and 4 days of gestation, who was admitted on 07/27/2020 for premature rupture of membranes at term. She received 2 doses of Cytotec and she started to have regular contractions on the day of admission. She progressed to 9 cm dilation, 90% effaced, and 0 station on 07/28/2020 evening when I came. Her contractions were irregular and she was started on Pitocin to augment. Her cervix remained the same as well as the head station for over 7 hours. Due to no change in cervix, neither station of the head, decision was made to proceed with primary . See dictated operative note for details. Her surgery was uncomplicated. She delivered a viable male at 1512 hours. Apgars were 8/9. On postoperative period, the patient was doing well, vital signs stable, afebrile. Urine output was adequate. Her physical exam was unremarkable. Alston was discontinued. She was encouraged to ambulate and she started on a regular diet. On postop day #2, the patient was doing well, vital signs stable, afebrile, passing gas, eating a regular diet. Her incision was clean, dry and intact. Abdomen was soft, nontender, nondistended. Her H and H was stable. She desired to go home on postop day #2. Discharge instructions were given. Prescriptions were written for pain. She is to be seen in the office in a week. All questions were answered. Job ID: [id number] [facility]
== END 2020-07-30 14:20 | disposition home or self-care (01) | DRG 807 ==
LOC: OPB 06:05 → 4S1 06:08 → 4S2 07-28 18:50